=== PATIENT | male | born 1995 | race Two or more races ===

== ENCOUNTER 2025-11-14 01:42 | Emergency (ER) | payer BC ==
[~2025-11-14] VITALS: Ht 172.7 cm; Wt 81.6 kg
[2025-11-14] MEDS ORDERED: ACID REDUCER20 M1 (02:42)
[2025-11-14 02:43] VITALS: BP 136/76; O2SAT 100
== END 2025-11-14 04:45 ==
LOC: ER 01:42
DX: T75.89XA Other specified effects of external causes, initial encounter (principal); Z91.013 Allergy to seafood